=== PATIENT | male | born 1985 | race Hispanic/Latino ===

== ENCOUNTER 2020-06-20 18:23 | Emergency (ER) | payer OTHER ==
--- OUTSIDE RECORDS SUMMARY | 2020-06-20 18:26 | XMS REPORT | Continuity of Care Document ---
:1985 Author Organization [facility] t Address [address] [place] [address] Care Team Providers Name Role Phone Pcp, Does Not Have A Attending Clinician Ligia GARCIA Attending Clinician Doctor Unassigned, Name Attending Clinician Unavailable Problems This patient has no known problems. Allergies, Adverse Reactions, Alerts This patient has no known allergies or adverse reactions. Medications This patient has no known medications. Procedures This patient has no known procedures. Encounters Start End Encounter Admission Attending Care Care Encounter Source Date/Time Date/Time Type Type Clinicians Facility Department ID 2019-11-22 2019-11-22 Letter JEFFERSON Donis [id number] 00:00:00 00:00:00 (Out) Patient [place] [id number] Does Not [facility] [id number] Have A [id number] 2019-05-01 2019-05-01 Refill LEE Strong [id number] 00:00:00 00:00:00 [facility] [id number] Surgical [id number] Specialti [id number] es [address] [place] 2019-04-11 2019-04-11 Urgent LEE Strong [id number] 21:04:41 21:19:41 Care [facility] [id number] Surgical [id number] Specialti [phone] es [address] [place] 2019-04-11 2019-04-11 Orders Doctor JEFFERSON [id number] 00:00:00 00:00:00 Only Unassigned, [place] [id number] [place] [facility] [id number] Results This patient has no known results.
[2020-06-20] MEDS ORDERED: HYDROCODONE/APAP 7.5/325 MG TAB ONE (19:43)
[2020-06-20] MEDS ORDERED: LIDOCAINE 4% PATCH ONE (19:45)
--- NOTE | 2020-06-20 19:55 | RAD REPORT ---
EXAM DESCRIPTION: CTSpine Lumbar Wo Con06/20/2020 7:40 pm CLINICAL HISTORY: Back pain/radiculopathy COMPARISON: None TECHNIQUE: Computed axial tomography lumbar spine was obtained with coronal and sagittal reconstruct ion. All CT scans are performed using dose optimization technique as appropriate and may include automated exposure control or mA/KV adjustment according to patient size. FINDINGS: No fracture is seen. No dislocation Small central disc herniation at L3-4. Soft tissue in the left neural foramina at L4-5 probably disc herniation. IMPRESSION: Negative for a lumbar fracture. Small central disc herniation L3-4 Soft tissue of the left neural foramina at L4-5 probably a disc herniation. MRI of the lumbar spine is recommended
--- NOTE | 2020-06-20 20:27 | EDPHYS ---
Physician Documentation [facility] Name: Dash Pollock Jr Age: 34 yrs Sex: Male : 1985 Arrival Date: 06/20/2020 Time: 18:25 Bed 13 Private MD: ED Physician Nigel Ortiz HPI: 06/20 20:02 This 34 yrs old Male presents to ER via Ambulatory with complaints of Low Back kb Pain. 20:02 The patient presents with pain that is acute. The symptoms are located in the low back. kb The pain does not radiate. The problem was sustained when lifting. Onset: The symptoms/episode began/occurred today. Modifying factors: The patient symptoms are alleviated by rest, the patient symptoms are aggravated by any movement, bending, walking. Associated signs and symptoms: The patient has no apparent associated signs or symptoms. Severity of symptoms: At their worst the symptoms were moderate, in the emergency department the symptoms are unchanged. The patient has not experienced similar symptoms in the past. The patient has not recently seen a physician. Pt reports he was carrying a case of water and the handle of one side broke causing it to fall. Pt reached down to pick it up and started having back pain. States the pain has not gone away. Denies urinary symptoms, numbness, tingling. Ambulates with steady gait. Historical: - Allergies: 18:34 No Known Allergies; ll1 - PMHx: 18:34 None; ll1 - PSHx: 18:34 Knee surgery; ll1 - Immunization history:: Flu vaccine is up to date. - Social history:: Smoking status: Patient denies any tobacco usage or history of. ROS: 20:01 Constitutional: Negative for fever, chills, and weight loss, MS/Extremity: Negative for kb injury and deformity, Skin: Negative for injury, rash, and discoloration, Neuro: Negative for headache, weakness, numbness, tingling, and seizure. 20:01 Back: Positive for pain at rest, pain with movement, of the lumbar area. Exam: 20:01 Constitutional: This is a well developed, well nourished patient who is awake, alert, kb and in no acute distress. Head/Face: Normocephalic, atraumatic. Respiratory: Respirations even and unlabored. No increased work of breathing, no retractions or nasal flaring. Skin: Warm, dry with normal turgor. Normal color. MS/ Extremity: Pulses equal, no cyanosis. Neurovascular intact. Full, normal range of motion. Neuro: Awake and alert, GCS 15, oriented to person, place, time, and situation. Moves all extremities. Normal gait. 20:01 Back: pain, that is moderate, of the lumbar area, ROM is painful, with all movement, normal spinal alignment noted, Straight leg raises: right lower extremity illicits pain, at 45 degrees. Vital Signs: 18:35 BP 157 / 71; Pulse 75; Resp 17; Temp 98.2; Pulse Ox 97% on R/A; Weight 97.52 kg; Height ll1 5 ft. 7 in. (170.18 cm); Pain 7/10; 19:19 BP 137 / 87; Pulse 73; Resp 16; Pulse Ox 98% on R/A; vg1 20:48 BP 135 / 88; Pulse 65; Resp 14; Pulse Ox 100% on R/A; vg1 18:35 Body Mass Index 33.67 (97.52 kg, 170.18 cm) ll1 MDM: 19:11 Patient medically screened. kb 20:00 Data reviewed: vital signs, nurses notes. Data interpreted: Pulse oximetry: on room air kb is 98 %. Interpretation: normal. Counseling: I had a detailed discussion with the patient and/or guardian regarding: the historical points, exam findings, and any diagnostic results supporting the discharge/admit diagnosis, radiology results, the need for outpatient follow up, a family practitioner, to return to the emergency department if symptoms worsen or persist or if there are any questions or concerns that arise at home. 06/20 19:15 Order name: CT Lumbar Spine Wo Con; Complete Time: 19:57 kb Administered Medications: 19:32 Drug: [place] (HYDROcodone-acetaminophen) (7.5 mg-325 mg) 1 tabs Route: PO; vg1 20:44 Follow up: Response: No adverse reaction; Pain is decreased vg1 19:32 Drug: Lidoderm 5 % (700 mg/patch) 1 patches Route: Topical; Site: affected area; vg1 20:44 Follow up: Response: No adverse reaction; Pain is decreased vg1 Disposition: 06/21 06:24 Co-signature as Attending Physician, Nigel Ortiz MD. mh7 Disposition: 06/20/20 20:26 Discharged to Home. Impression: Low back pain - herniated disc. - Condition is Stable. - Discharge Instructions: Back Pain, Adult, [id number], Herniated Disk, [id number]-[id number]. - Prescriptions for Cyclobenzaprine 10 mg Oral Tablet - take 1 tablet by ORAL route every 8 hours As needed; 21 tablet. Diclofenac Sodium 75 mg Oral Tablet, Delayed Release (E.C.) - take 1 tablet by ORAL route 2 times per day As needed; 30 tablet. - Medication Reconciliation Form, Thank You Letter, Antibiotic Education, Prescription Opioid Use form. - Follow up: Emergency Department; When: As needed; Reason: Worsening of condition. Follow up: Private Physician; When: 2 - 3 days; Reason: Recheck today's complaints, Continuance of care, Re-evaluation by your physician. Signatures: Dispatcher [employer] EDMS Bette Beatty, ELAINE-C ELAINE-Nery Pruitt RN RN vg1 Leonel Singh RN RN 1 Nigel Ortiz MD MD mh7 Corrections: (The following items were deleted from the chart) 06/20 20:49 20:26 06/20/2020 20:26 Discharged to Home. Impression: Low back pain - herniated disc. vg1 Condition is Stable. Forms are Medication Reconciliation Form, Thank You Letter, Antibiotic Education, Prescription Opioid Use. Follow up: Emergency Department; When: As needed; Reason: Worsening of condition. Follow up: Private Physician; When: 2 - 3 days; Reason: Recheck today's complaints, Continuance of care, Re-evaluation by your physician. kb
--- NOTE | 2020-06-20 20:27 | ER ---
Nurse's Notes [facility] Name: Dash Pollock Jr Age: 34 yrs Sex: Male : 1985 Arrival Date: 06/20/2020 Time: 18:25 Bed 13 Private MD: Diagnosis: Low back pain-herniated disc Presentation: 06/20 18:35 Chief complaint: Patient states: Low back pain started after water he was carrying fell ll1 to ground. Sharp pain when getting back up from picking up water. No trauma or falls. Coronavirus screen: Client denies travel out of the [place] in the last 14 days. At this time, the client does not indicate any symptoms associated with coronavirus-19. Ebola Screen: Patient denies travel to an Ebola-affected area in the 21 days before illness onset. Initial Sepsis Screen: Does the patient meet any 2 criteria? No. Patient's initial sepsis screen is negative. Does the patient have a suspected source of infection? Yes: Bone or joint infection. Risk Assessment: Do you want to hurt yourself or someone else? Patient reports no desire to harm self or others. Onset of symptoms was June 20, 2020. 18:35 Method Of Arrival: Ambulatory ll1 18:35 Acuity: DIANE 4 ll1 Historical: - Allergies: 18:34 No Known Allergies; ll1 - PMHx: 18:34 None; ll1 - PSHx: 18:34 Knee surgery; ll1 - Immunization history:: Flu vaccine is up to date. - Social history:: Smoking status: Patient denies any tobacco usage or history of. Screenin:19 Abuse screen: Denies threats or abuse. Nutritional screening: No deficits noted. vg1 Tuberculosis screening: No symptoms or risk factors identified. Fall Risk No fall in past 12 months (0 pts). No secondary diagnosis (0 pts). No IV (0 pts). Ambulatory Aid- None/Bed Rest/Nurse Assist (0 pts). Gait- Normal/Bed Rest/Wheelchair (0 pts) Mental Status- Oriented to own ability (0 pts). Total Wilson Fall Scale indicates No Risk (0-24 pts). Assessment: 19:18 General: Appears in no apparent distress. comfortable, Behavior is calm, cooperative. vg1 Pain: Complains of pain in lumbar area, left low back and right low back Pain currently is 0 out of 10 on a pain scale. at worst was 7 out of 10 on a pain scale. Alleviated by rest, Aggravated by repositioning. Neuro: Level of Consciousness is awake, alert, obeys commands, Oriented to person, place, time, situation. Cardiovascular: Patient's skin is warm and dry. Respiratory: Airway is patent Respiratory effort is even, unlabored. GI: No signs and/or symptoms were reported involving the gastrointestinal system. : No signs and/or symptoms were reported regarding the genitourinary system. EENT: No signs and/or symptoms were reported regarding the EENT system. Derm: Skin is intact, is healthy with good turgor. Musculoskeletal: Circulation, motion, and sensation intact. 20:47 Reassessment: Patient appears in no apparent distress at this time. Patient and/or vg1 family updated on plan of care and expected duration. Pain level reassessed. Patient is alert, oriented x 3, equal unlabored respirations, skin warm/dry/pink. Patient states feeling better. Vital Signs: 18:35 BP 157 / 71; Pulse 75; Resp 17; Temp 98.2; Pulse Ox 97% on R/A; Weight 97.52 kg; Height ll1 5 ft. 7 in. (170.18 cm); Pain 7/10; 19:19 BP 137 / 87; Pulse 73; Resp 16; Pulse Ox 98% on R/A; vg1 20:48 BP 135 / 88; Pulse 65; Resp 14; Pulse Ox 100% on R/A; vg1 18:35 Body Mass Index 33.67 (97.52 kg, 170.18 cm) ll1 ED Course: 18:25 Patient arrived in ED. rg4 18:34 Arm band placed on. ll1 18:36 Triage completed. ll1 19:05 Bette Beatty FNP-C is PHCP. kb 19:05 Lauri Irwin MD is Attending Physician. kb 19:09 Nigel Ortiz MD is Attending Physician. mh7 19:10 Nery Alicea, BRIT is Primary Nurse. vg1 19:11 Bette Beatty FNP-C is PHCP. kb 19:20 Patient has correct armband on for positive identification. Bed in low position. Call vg1 light in reach. Side rails up X 1. 19:[address] via wheelchair. vg1 19:40 CT Lumbar Spine Wo Con In Process Unspecified. EDMS 20:48 No provider procedures requiring assistance completed. Patient did not have IV access vg1 during this emergency room visit. Administered Medications: 19:32 Drug: [place] (HYDROcodone-acetaminophen) (7.5 mg-325 mg) 1 tabs Route: PO; vg1 20:44 Follow up: Response: No adverse reaction; Pain is decreased vg1 19:32 Drug: Lidoderm 5 % (700 mg/patch) 1 patches Route: Topical; Site: affected area; vg1 20:44 Follow up: Response: No adverse reaction; Pain is decreased vg1 Outcome: 20:26 Discharge ordered by . evans 20:48 Discharged to home with crutches. vg1 20:48 Condition: stable 20:48 Discharge instructions given to patient, Instructed on discharge instructions, follow up and referral plans. medication usage, Demonstrated understanding of instructions, follow-up care, medications, Prescriptions given X 2. 20:49 Patient left the ED. vg1 Signatures: Dispatcher [employer] EDMS Bette Beatty, LATENT FINGERPRINT EXAMINER-C LATENT FINGERPRINT EXAMINER-Kathi Pruitt rg4 Nery Alicea, RN RN vg1 Leonel Singh RN RN ll1 Nigel Ortiz MD MD mh7
[2020-06-20 21:02] VITALS: TEMP 98.2
[2020-06-20 21:04] VITALS: BP 135/88; O2SAT 100
== END 2020-06-20 20:49 | disposition home or self-care (01) ==
LOC: ER 18:23
DX: M51.26 Other intervertebral disc displacement, lumbar region (principal); X50.0XXA Overexertion from strenuous movement or load, initial encounter; Y93.89 Activity, other specified; Y92.9 Unspecified place or not applicable
CPT/HCPCS: 72131; 99284

== ENCOUNTER 2024-01-09 21:23 | Emergency (ER) | payer OTHER ==
--- OUTSIDE RECORDS SUMMARY | 2024-01-09 21:26 | XMS REPORT | Continuity of Care Document ---
Author Name Unknown Address [address] [facility] [address] [place] [address] [facility] Address [address] [facility] [place] [address] Care Team Providers Care Wafer Slicer Name Role Phone Pcp, Patient Does Not Have A Attending Clinician Grace Strong PA-C Attending Clinician Doctor Unassigned, [place] Attending Clinician U navailable Encounters Start Date/Time End Date/Time Encounter Type Admission Type Attending Clinicians Care Facility Care Department Encounter ID Source 2019-11-22 00:00:00 2019-11-22 00:00:00 Letter (Out) Pcp, Patient Does Not Have A [facility] [id number] 2019-05-01 00:00:00 2019-05-01 00:00:00 Refill Grace Strong [facility] [id number] 2019-04-11 21:04:41 2019-04-11 21:19:41 Urgent Care Grace Strong [facility] [id number] 2019-04-11 00:00:00 2019-04-11 00:00:00 Orders Only Doctor Unassigned, [place] [facility] [id number]
--- NOTE | 2024-01-09 22:12 | RAD REPORT ---
EXAMINATION: XR LEFT FOOT CLINICAL INDICATION: big toe pain after dropping weight on toe TECHNIQUE: Multiple projections of the left foot were obtained. COMPARISON: No prior exam. FINDINGS: Mild nondisplaced tuft fracture of the distal phalanx of the great toe. Moderate adjacent s oft tissue swelling.
[2024-01-09] MEDS ORDERED: IBUPROFEN 400 MG TAB ONE (23:22)
--- NOTE | 2024-01-09 23:30 | EDPHYS ---
Physician Documentation [facility] Name: Dash Pollock Jr Age: 38 yrs Sex: Male : 1985 Arrival Date: 01/09/2024 Time: 21:23 Bed DX3 Private MD: ED Physician Dmitry Ling HPI: 01/08 22:00 This 38 yrs old Male presents to ER via Ambulatory with complaints of Foot cp Injury, Foot Pain. 22:00 The patient presents with an injury. The complaints affect the left first toe. Context: cp at gym dropped heavy weight onto toe. Onset: The symptoms/episode began/occurred today. Associated signs and symptoms: The patient has no apparent associated signs or symptoms. Historical: - Allergies: 22:30 No Known Allergies; lg3 - Home Meds: 22:30 None [Active]; lg3 - PMHx: 22:30 None; lg3 - PSHx: 22:30 None; lg3 - Immunization history:: Adult Immunizations up to date. - Infectious Disease History:: Denies. - Social history:: Smoking status: Patient denies any tobacco usage or history of. Patient uses alcohol, occasionally. Patient/guardian denies using street drugs. ROS: 23:00 Constitutional: HX per hpi cp 23:00 MS/extremity: Positive for ecchymosis, pain, swelling, tenderness, of the left first toe, injury, 23:00 Neuro: Negative for numbness, tingling, 23:00 All other systems are negative, Exam: 23:05 Constitutional: The patient appears in no acute distress, alert, awake, well developed, cp well nourished, 23:05 Head/Face: Normocephalic, atraumatic. cp 23:05 Musculoskeletal/extremity: Extremities: noted in the left foot: Mild swelling noted of left great toe, mild ecchymosis noted proximal to the nail with tenderness to palpation. Patient with full range of motion of the toe and toe is neurovascular intact. Nail of left great toe is intact, Vital Signs: 22:29 BP 156 / 98; Pulse 86; Resp 17 S; Temp 97.6(O); Pulse Ox 100% on R/A; Weight 90.72 kg lg3 (R); Height 5 ft. 8 in. (R); 23:40 BP 149 / 91; Pulse 88; Resp 18 S; Temp 97.2(O); Pulse Ox 100% on R/A; lg3 22:29 Body Mass Index 30.41 (90.72 kg, 172.72 cm) lg3 MDM: 23:00 Differential diagnosis: dislocation, open fracture, closed fracture, contusion, nail cp injury. 23:29 Medical Screening Exam initiated 23:29 Data reviewed: vital signs, nurses notes, radiologic studies, plain films, and as a cp result, I will discharge patient. 23:29 I considered the following discharge prescriptions or medication management in the emergency department Medications were administered in the Emergency Department. See MAR. Counseling: I had a detailed discussion with the patient and/or guardian regarding the historical points, exam findings, and any diagnostic results supporting the discharge/admit diagnosis, radiology results, the need for outpatient follow up, a crna, to return to the emergency department if symptoms worsen or persist or if there are any questions or concerns that arise at home. Response to treatment: the patient's symptoms have mildly improved after treatment, and as a result, I will discharge patient. 01/08 21:47 Order name: XRAY Foot LEFT 3 View; Complete Time: 23:01 cp 01/08 23:01 Interpretation: Reviewed report. 01/08 23:28 Order name: Post-op shoe; Complete Time: 23:40 cp Administered Medications: 23:40 Drug: Ibuprofen PO 800 mg PO once Route: PO; lg3 23:40 Follow up: Response: No adverse reaction; Medication administered at discharge. lg3 Disposition Summary: 01/09/24 23:29 Discharge Ordered Notes: Location: Home cp Problem: new cp Symptoms: have improved cp Condition: Stable cp Diagnosis - Nondisplaced fracture of distal phalanx of left great toe cp Followup: cp - With: Dash aMrk DPM - When: 1 week - Reason: Recheck today's complaints Discharge Instructions: - Discharge Summary Sheet cp - Toe Fracture cp Forms: - Medication Reconciliation Form cp - Antibiotic Education cp - Prescription Opioid Use cp - Patient Portal Instructions cp - Leadership Thank You Letter cp Prescriptions: - Anaprox DS 550 mg Oral Tablet - take 1 tablet ORAL route every 12 hours As needed; 20 tablet; Refills: 0, cp Product Selection Permitted Signatures: Dispatcher [employer] Dmitry Mason PA PA cp Able, Lacie, RN RN lg3 Corrections: (The following items were deleted from the chart) 01/09 22:25 01/08 23:05 Musculoskeletal/extremity: Extremities: noted in the right foot: Mild cp swelling noted of right great toe, mild ecchymosis noted proximal to the nail with tenderness to palpation. Patient with full range of motion of the toe and toe is neurovascular intact. Nail of right great toe is intact, cp
--- NOTE | 2024-01-09 23:30 | ER ---
Nurse's Notes [facility] Name: Dash Pollock Jr Age: 38 yrs Sex: Male : 1985 Arrival Date: 01/09/2024 Time: 21:23 Bed DX3 Private MD: Diagnosis: Nondisplaced fracture of distal phalanx of left great toe Presentation: 01/08 22:29 Chief complaint: Patient states: dropped weight on left big toe around 1600. new lg3 swelling. Coronavirus screen: Client denies travel out of the [place] in the last 14 days. At this time, the client does not indicate any symptoms associated with coronavirus-19. Ebola Screen: No symptoms or risks identified at this time. Initial Sepsis Screen: Does the patient meet any 2 criteria? No. Patient's initial sepsis screen is negative. Does the patient have a suspected source of infection? No. Patient's initial sepsis screen is negative. Risk Assessment: Do you want to hurt yourself or someone else? Patient reports no desire to harm self or others. Onset of symptoms was January 09, 2024. 22:29 Method Of Arrival: Ambulatory lg3 22:29 Acuity: DIANE 4 lg3 Triage Assessment: 22:30 General: Appears in no apparent distress. comfortable, Behavior is calm, cooperative. lg3 Pain: Complains of pain in left first toe. EENT: No deficits noted. No signs and/or symptoms were reported regarding the EENT system. Neuro: No deficits noted. Banda Agitation-Sedation Scale (RASS): 0 - Alert and Calm Level of Consciousness is awake, alert, obeys commands, Oriented to person, place, time, situation. Cardiovascular: No deficits noted. Denies chest pain, shortness of breath, Capillary refill < 3 seconds Clubbing of nail beds is absent JVD is absent Patient's skin is warm and dry. Respiratory: No deficits noted. Airway is patent Respiratory effort is even, unlabored, Respiratory pattern is regular, symmetrical. GI: No deficits noted. No signs and/or symptoms were reported involving the gastrointestinal system. : No deficits noted. No signs and/or symptoms were reported regarding the genitourinary system. Derm: Skin is intact, is healthy with good turgor, Skin is dry, Skin is normal, Skin temperature is warm Bruising that is on left first toe. Musculoskeletal: Circulation, motion, and sensation intact. Range of motion: intact in all extremities, Swelling present in left first toe. Injury Description: Crush injury sustained to left first toe. Historical: - Allergies: 22:30 No Known Allergies; lg3 - Home Meds: 22:30 None [Active]; lg3 - PMHx: 22:30 None; lg3 - PSHx: 22:30 None; lg3 - Immunization history:: Adult Immunizations up to date. - Infectious Disease History:: Denies. - Social history:: Smoking status: Patient denies any tobacco usage or history of. Patient uses alcohol, occasionally. Patient/guardian denies using street drugs. Screenin:32 [facility] ED Fall Risk Assessment (Adult) History of falling in the last 3 months, lg3 including since admission No falls in past 3 months (0 pts) Confusion or Disorientation No (0 pts) Intoxicated or Sedated No (0 pts) Impaired Gait No (0 pts) Mobility Assist Device Used No (0 pt) Altered Elimination No (0 pt) Score/Fall Risk Level 0 - 2 = Low Risk Oriented to surroundings, Maintained a safe environment, Educated pt \T\ family on fall prevention, incl call for assistance when getting out of bed, Assessed \T\ reinforced patient's understanding of fall precautions. Abuse screen: Denies threats or abuse. Denies injuries from another. Nutritional screening: No deficits noted. Tuberculosis screening: No symptoms or risk factors identified. Assessment: 22:32 General: see triage assessment. lg3 23:40 Reassessment: Patient appears in no apparent distress at this time. No changes from lg3 previously documented assessment. Patient and/or family updated on plan of care and expected duration. Pain level reassessed. Patient is alert, oriented x 3, equal unlabored respirations, skin warm/dry/pink. Vital Signs: 22:29 BP 156 / 98; Pulse 86; Resp 17 S; Temp 97.6(O); Pulse Ox 100% on R/A; Weight 90.72 kg lg3 (R); Height 5 ft. 8 in. (R); 23:40 BP 149 / 91; Pulse 88; Resp 18 S; Temp 97.2(O); Pulse Ox 100% on R/A; lg3 22:29 Body Mass Index 30.41 (90.72 kg, 172.72 cm) lg3 ED Course: 21:35 Patient arrived in ED. gm2 21:41 Dmitry Sánchez PA is PHCP. cp 21:41 Dmitry Ling MD is Attending Physician. cp 22:06 XRAY Foot LEFT 3 View In Process Unspecified. EDMS 22:30 Triage completed. lg3 22:30 Arm band placed on right wrist. lg3 22:32 Patient has correct armband on for positive identification. lg3 23:28 Dash Mark DPM is Referral Physician. cp 23:39 Ro Haley, RN is Primary Nurse. lg3 23:40 No provider procedures requiring assistance completed. Patient did not have IV access lg3 during this emergency room visit. 23:40 Ortho shoe applied to left foot. lg3 Administered Medications: 23:40 Drug: Ibuprofen PO 800 mg PO once Route: PO; lg3 23:40 Follow up: Response: No adverse reaction; Medication administered at discharge. lg3 Medication: 22:32 VIS not applicable for this client. lg3 Outcome: 23:29 Discharge ordered by . cp 23:41 Discharged to home ambulatory, lg3 23:41 Condition: stable 23:41 Discharge instructions given to patient, Instructed on discharge instructions, follow up and referral plans. medication usage, Demonstrated understanding of Prescriptions given X 1, 23:42 Patient left the ED. lg3 Signatures: Dispatcher [employer] EDMS Dmitry Sánchez PA PA cp Able, Lacie, RN RN lg3 Patricia Farooq gm2
[2024-01-10 02:46] VITALS: O2SAT 100
[2024-01-10 02:55] VITALS: BP 149/91; TEMP 97.2
== END 2024-01-09 23:42 | disposition home or self-care (01) ==
LOC: ER 21:23
DX: S92.425A Nondisplaced fracture of distal phalanx of left great toe, initial encounter for closed fracture (principal)
CPT/HCPCS: 99284